=== PATIENT | female | born 1960 | race African-American/Black ===

== ENCOUNTER 2018-03-03 14:20 | Inpatient (IN) | payer MEDICARE, OTHER ==
[2018-03-03] MEDS ORDERED: Ondansetron ODT 4 MG TAB ONE (15:50)
[2018-03-03] MEDS ORDERED: HYDROcodone/Acetaminophen 10/325 mg Tablet ONE (15:50)
[2018-03-03] MEDS ORDERED: Rocuronium Bromide 10 MG/ML (10ML VIAL) ONE (16:11)
[2018-03-03] MEDS ORDERED: Lidocaine 1% PF 5 ML VIAL ONE (16:11)
[2018-03-03] MEDS ORDERED: PHENYLEPHRINE-NS 100 MCG/ML 10 ML SYRINGE ONE (16:11)
[2018-03-03] MEDS ORDERED: Succinylcholine Chloride 20 MG/ML 10 ml SYRINGE FS ONE (16:11)
[2018-03-03] MEDS ORDERED: Glycopyrrolate 0.2 MG/ML 5 ML SYRINGE ONE (16:11)
[2018-03-03] MEDS ORDERED: Ondansetron PF 4 MG/2 ML Vial ONE ×2 (16:11→18:02)
[2018-03-03] MEDS ORDERED: PROPOFOL 200 MG/20 ML VIAL ONE (16:11)
[2018-03-03 16:18] LABS: #Lymphocytes 0.6 thou/uL (1.20-3.40); #Monocytes 0.4 thou/uL (0.11-0.59); #Neutrophils 9.6 thou/uL (1.40-6.50); %Basophils 0.1 % (0.0-1.0); %Eosinophils 0.3 % (0.0-10.0); %Lymphocytes 5.6 % (21.0-51.0); %Monocytes 3.3 % (0.0-10.0); %Neutrophils 90.7 % (42.0-75.0); Mean Corpuscular Hemoglobin 31.6 pg (27.0-31.0); Mean Corpuscular Volume 98.8 fL (78.0-98.0); Mean Platelet Volume 7.9 fL (7.4-10.4); Platelet Count 198 thou/uL (130-400); RBC Distribution Width 11.9 % (11.5-14.5); Red Blood Cell (RBC) Count 4.74 mill/uL (4.20-5.40); White Blood Cell (WBC) Count 10.6 thou/uL (4.8-10.8)
[2018-03-03 16:41] LABS: ALT (SGPT) 17 U/L (8-55); AST (SGOT) 13 U/L (5-34); Albumin 3.7 g/dL (3.5-5.0); Alkaline Phosphatase 152 U/L (40-150); Anion Gap 11 mmol/L (10-20); BUN (Urea Nitrogen) 12 mg/dL (9.8-20.1); Bilirubin, Total 0.8 mg/dL (0.2-1.2); CK (CPK) 87 U/L (29-168); Calc. Creatinine Clearance 0 mL/min (70-130); Calcium 11.1 mg/dL (7.8-10.44); Carbon Dioxide 25 mmol/L (22-29); Chloride 101 mmol/L (98-107); Estimated GFR-MDRD 67; Globulin 4.7 g/dL (2.4-3.5); Glucose 208 mg/dL (70-105); Lipase 20 U/L (8-78); Potassium 4.2 mmol/L (3.5-5.1); Protein, Total 8.4 g/dL (6.0-8.3); Sodium 133 mmol/L (136-145)
--- NOTE | 2018-03-03 17:06 | RAD ---
PORTABLE CHEST: 03/03/18 HISTORY: Shortness of breath. Abdominal pain. COMPARISON: 06/06/15 exam. Heart size is enlarged. There are atherosclerotic changes of the aorta. The lungs are clear of infilt rates. No signs of failure. IMPRESSION: Marked cardiomegaly. Stable exam. POS: [facility]
[2018-03-03] MEDS ORDERED: Acetaminophen 500 MG TAB ONE (17:17)
[2018-03-03 18:00] LABS: Bilirubin Negative (Negative); Blood, Urine Large (Negative); Clarity CLOUDY (Clear); Glucose, Urine (Dipstick) 100 mg/dL (Negative); Leukocyte Moderate (Negative); Nitrite Negative (Negative); Protein, Urine (Dipstick) 100 mg/dL (Neg-Trace); Specific Gravity, Urine 1.016 (1.002-1.036)
[2018-03-03 18:02] LABS: Bacteria/HPF None Seen HPF (None Seen); Hyaline Casts/LPF 4-6 HYALINE CAST LPF (0-3 Hyaline); Pathc Cast-AUWi Flag 0.87 (0-2.49); RBC/HPF GREATER THAN 50-TNTC HPF (0-3); Squamous Epithelial 0-3 HPF (0-3)
[2018-03-03] MEDS ORDERED: Morphine 4 MG/ML VIAL ONE (18:02)
[2018-03-03] MEDS ORDERED: cefTRIAXone\\ROCEPHIN 2 GM VIAL ONE (18:17)
[2018-03-03 18:48] LABS: PTT 33.8 SEC (22.9-36.1); Prothrombin Time 13.7 SEC (12.0-14.7)
[2018-03-03] MEDS ORDERED: Iopamidol 15 ML ONE (19:25)
--- NOTE | 2018-03-03 19:58 | CT ---
NONCONTRAST ENHANCED CT IMAGES OF THE ABDOMEN AND PELVIS: 03/03/18 HISTORY: Abdominal pain. Noncontrast enhanced CT images of the abdomen and pelvis demonstrates the lung bases to demonstrate n o definite evidence of effusions or pneumonia. Images of the liver and spleen, gallbladder and pancre as are grossly unremarkable. There is some fullness seen to the left adrenal gland. This does not ap pear to be significantly different than on the previous comparison exam from 03/27/15. The patient previously had a left ureteral stent which is no longer present. Multiple nonobstructing small lower pole calculi seen. There is interval development of a large right ureteropelvic junction calculus, diameter measuring ap proximately 10 mm resulting in right sided hydronephrosis. There is some gas within the right collect ing system. This may represent possible gas forming organism in an obstructed right system. No dilate d loops of small bowel seen. There is a moderate sized anterior abdominal wall infraumbilical hernia in the midline. IMPRESSION: Obstructing proximal right ureteral calculus with developed right sided hydronephrosis and gas within the right collecting system. Urologic intervention is recommended. POS: [facility]
[2018-03-03] MEDS ORDERED: Fentanyl 100 MCG/2 ML VIAL ONE (20:41)
[2018-03-03] MEDS ORDERED: diphenhydrAMINE 50 MG in Sodium Chloride 0.9% 50 ML IVPB PRN (21:53)
[2018-03-03] MEDS ORDERED: Metoclopramide HCl 10 MG/2 ML VIAL IVP PRN (21:53)
[2018-03-03] MEDS ORDERED: Morphine 4 MG/ML VIAL SLOW IVP PRN ×2 (21:53)
[2018-03-03] MEDS ORDERED: Lactated Ringer's 1,000 ML IV SCH (22:00)
[2018-03-03 22:06] LABS: Bilirubin Negative (Negative); Clarity TURBID (Clear); Glucose, Urine (Dipstick) Negative (Negative); Leukocyte Large (Negative); Nitrite Negative (Negative); Protein, Urine (Dipstick) 30 mg/dL (Neg-Trace); Specific Gravity, Urine 1.007 (1.002-1.036); pH, Urine 5.5 (5.0-9.0)
[2018-03-03 22:22] LABS: Pathc Cast-AUWi Flag 11.45 (0-2.49); Yeast-AUWi Flag 224.1 (0-25.0)
[2018-03-03 22:30] LABS: Bacteria/HPF 2+ HPF (None Seen); Blood, Urine Small (Negative); Hyaline Casts/LPF 0-3 HYALINE CAST LPF (0-3 Hyaline); RBC/HPF 0-3 HPF (0-3); Yeast-All Forms None Seen HPF (None Seen)
[2018-03-03 23:30] VITALS: BMI 58.1
[2018-03-04] MEDS ORDERED: Ondansetron PF 4 MG/2 ML Vial IVP PRN (02:39)
[2018-03-04] MEDS ORDERED: Dextrose 5% in Water 1,000 ML IV PRN ×2 (02:55→07:06)
[2018-03-04] MEDS ORDERED: Dextrose 50% Abboject 50 ML SYRINGE SLOW IVP PRN ×2 (02:55→07:06)
[2018-03-04] MEDS ORDERED: hydrALAZINE 20 MG/ML VIAL SLOW IVP PRN (02:57)
--- NOTE | 2018-03-04 03:05 | OP ---
DATE OF PROCEDURE: 03/03/2018 PREOPERATIVE DIAGNOSIS: Right UPJ stone with obstruction and presumed urinary tract infection. POSTOPERATIVE DIAGNOSIS: Right UPJ stone with obstruction and presumed urinary tract infection. PROCEDURE PERFORMED: Cystoscopy, retrograde pyelogram, insertion of right ureteral stent 6 x 26. ANESTHESIA: General with endotracheal tube. FINDINGS: Cloudy urine but only approximately 78 mL extracted from the renal pelvis and 6 x 26 double-J stent placed without difficulty in adequate position with good return. DRAINS REMAINING: Internal double-J 6 x 26 and regular Condon 18-Zambian. SPECIMEN: Urine from the right renal pelvis for micro and culture. ESTIMATED BLOOD LOSS: None. INDICATIONS FOR PROCEDURE: The patient is a 58-year-old female, who was admitted acutely with presumed UTI and obstructing right UPJ stone for urgent stent. At that time, she was having significant tachycardia, hypertension, and no concerns for hypotension with a relatively normal white count and no obvious bacteria despite significant inflammation in blood on urinalysis. [place] that she could likely get to the operating room for a stent, more safely in a timely fashion since she was hemodynamically stable rather than opt for percutaneous nephrostomy tube. DESCRIPTION OF PROCEDURE: The patient was brought into the room by Anesthesia, laid on the table in supine position. After receiving general anesthetic, the legs were placed in lithotomy position with the perineum prepped and draped in a sterile fashion. Using a 21-Zambian cystoscope, the urethra was traversed and the bladder was inspected. No lesions were noted. There was cloudy urine extracted and then the bladder was refilled. The right orifice was identified and intubated with a wire and then the Lancaster catheter. The wire was advanced beyond the stone and this was noted by pressure. It was difficult to see by fluoroscopy given the patient 's body habitus. The Lancaster catheter was advanced over the wire and then the wire was removed, and hydronephrotic drip was noted with approximately 7-8 mL of cloudy urine extracted and sent for specimen. At this time, releiving some of the pressure on the sysetm, I did a retrograde pyelogram which showed some hydro. Then, a 6 x 26 double-J was chosen. I attempted to find a 7 x 26, but they did not have this accessible. A good coil was visualized in the renal pelvis via fluoroscopy and a good coil visualized in the bladder via cystoscopy. The scope was removed. Given the cloudy debris and concern for infection with obstruction, I placed an 18-Zambian catheter in the Condon for maximum drainage. She was then awakened and transferred to PACU in stable condition. Job ID: [id number] MTDD
[2018-03-04] MEDS ORDERED: traMADol HCl 50 MG TAB PO PRN ×2 (07:04)
[2018-03-04] MEDS ORDERED: Metoclopramide HCl 10 MG/2 ML VIAL IVP PRN (07:04)
[2018-03-04] MEDS ORDERED: HumaLOG 300 UNITS/3 ML VIAL SC PRN (07:06)
[2018-03-04] MEDS: HumaLOG 300 UNITS/3 ML VIAL SC PRN ×3 (07:28→21:09)
[2018-03-04] MEDS: Acetaminophen 500 MG TAB PO PRN (07:31)
[2018-03-04] MEDS: Heparin 5,000 UNITS/ML VIAL SC SCH ×3 (07:48→21:09)
[2018-03-04] MEDS: Tamsulosin HCl 0.4 MG CAP PO SCH (07:49)
[2018-03-04] MEDS: Famotidine/PF 20 mg/2ml Vial SLOW IVP SCH ×2 (07:49→21:09)
[2018-03-04] MEDS: Docusate 100 MG CAP PO SCH ×2 (07:49→21:09)
[2018-03-04 08:19] LABS: Hemoglobin 14.2 g/dL (12.0-16.0); Mean Corpuscular HGB CONC 31.6 g/dL (32.0-36.0); Platelet Count 184 thou/uL (130-400); Red Blood Cell (RBC) Count 4.42 mill/uL (4.20-5.40); White Blood Cell (WBC) Count 17.7 thou/uL (4.8-10.8)
[2018-03-04 08:21] LABS: Hemoglobin A1c 7.5 % (4.0-6.0)
--- NOTE | 2018-03-04 08:35 | CON ---
DATE OF CONSULTATION: REASON FOR CONSULTATION: Medical management. HISTORY OF PRESENT ILLNESS: Ms. Cleary is a 58-year-old female who was evaluated in the emergency room on 03/03/2018 for evaluation of abdominal pain. Reports some mild shortness of breath, dark urine with an odor. The patient has had a kidney stone in the past, which required stenting on the left side with pyelonephritis in 2014. The patient was tachycardic and hypertensive on arrival, reported some mild right-sided back pain with some nausea. PAST MEDICAL HISTORY: Pertinent for coronary artery disease, congestive heart failure. Last EF can be found in the records from May 2013 with an EF of 48% on a stress test, November of 2013. She had 1/3 diastolic dysfunction. Also has a history of type 2 diabetes, GERD, hypertension, hyperlipidemia. The patient was found to have an obstructing proximal right renal calculus with developed right-sided hydronephrosis and gas within the right collecting system. Urologic intervention was recommended. Dr. Grey was consulted and Dr. Acosta took the patient to the OR for a stent placement and cystoscopy. The patient was then admitted to the surgical floor with fluids and IV antibiotics. Sound was consulted for medical management. PCP is Shanti Brasher. ALLERGIES: NO KNOWN DRUG ALLERGIES. HOME MEDICATIONS: Include: 1. Aspirin 81 mg p.o. daily. 2. Carvedilol 12.5 mg p.o. b.i.d. 3. Lisinopril 10 mg p.o. b.i.d. 4. Metformin 500 mg p.o. q.a.m. 5. Furosemide 40 mg p.o. daily. 6. Prilosec 20 mg p.o. daily. 7. Pravachol 40 mg p.o. q.p.m. PAST MEDICAL HISTORY: As above: 1. Obesity. 2. Coronary artery disease. 3. Congestive heart failure. 4. Type 2 diabetes. 5. GERD. 6. Hypertension. 7. Hyperlipidemia. PAST SURGICAL HISTORY: 1. Hernia repair. 2. Cardiac cath in 2009. 3. Stress test in 2013, which showed an EF of 48% and mild diastolic dysfunction. 4. Repair of fractured pelvic bone 20 years ago. PSYCHIATRIC HISTORY: None. SOCIAL HISTORY: The patient drinks socially. Denies drug use. Denies any smoking history. Lives at home with her family. FAMILY HISTORY: Includes coronary artery disease. ADDITIONAL SURGICAL HISTORY: Includes stent placement to the left ureter for 2 calculi in 2015. REVIEW OF SYSTEMS: CONSTITUTIONAL: The patient denies fever, chills. EYES: Denies any eye pain, discharge or vision changes. ENT: Denies sore throat. Denies rhinorrhea. CARDIOVASCULAR: Denies any chest pain, palpitations, syncope. RESPIRATORY: Reports some shortness of breath with pain. Reports it is better. EXTREMITIES: No cyanosis. GI: Right-sided abdominal pain, nausea. Denies diarrhea, constipation, vomiting. : Reports dark odorous urine. Denies dysuria. MUSCULOSKELETAL: Denies any falls, trauma. No myalgias. SKIN: No changes. No rash. NEUROLOGIC: No focal weakness. No headache. PHYSICAL EXAMINATION: VITAL SIGNS: Temperature is 97.8, pulse is 101, respiratory rate is 18 p.o. sat is 94% on room air. Blood pressure is 154/74. GENERAL: The patient is in no distress, is alert and oriented to person, place, and time. HEENT: Head is atraumatic and normocephalic. Eyes are equally round and reactive to light. External ocular muscles are intact. Sclera is normal. ENT: Nose exam is normal. Mouth exam is normal. Mucous membranes are moist. NECK: Trachea is midline. No tenderness. RESPIRATORY: Chest breath sounds are clear. Chest movement is symmetrical. No respiratory distress. CARDIOVASCULAR: Regular rate and rhythm. Heart sounds are normal. ABDOMEN: Diffuse mild abdominal pain. Nonspecific bowel sounds are heard. BACK: Normal inspection. No CVA tenderness. EXTREMITIES: Upper extremity motor strength is normal. Motor strength is equal bilaterally. Pulses equal bilaterally in lower extremities. Motor strength is normal. No calf tenderness. Pedal pulses are equal bilaterally. No edema is noted. NEUROLOGIC: The patient is oriented to person, place, and time. Speech is normal. SKIN: Warm, dry, normal in color. IMAGIN. EKG in the ER shows sinus tach, beats per minute 127, possible left atrial enlargement. 2. Radiology interpretation, chest x-ray is cloudy. No obvious infiltrates. 3. Abdomen pelvis CT as above. Right UPJ obstruction with gas-forming organism. PERTINENT LABORATORY DATA: White blood cell count is 10.6, hemoglobin is 15, hematocrit is 46.9, and platelet count is 198. INR is 1. APTT is 33.8, PT is 13.7. Sodium was 133, potassium 4.2, chloride 101, gap is 11, BUN is 12, creatinine is 1.02. GFR is 67, glucose 208. Initial lactic acid 1.5, calcium 11.1, bilirubin 0.8, AST 13, ALT is 17, alkaline phosphatase 152. CK is 87, first troponin undetectable. Albumin 3.7, globulin 4.7, lipase is 20. Initial urine at 1725 hours showed cloudy protein, glucose, blood positive, moderate leukocyte esterase, greater than 50 white blood cell count, bacteria none, casts 4-6. Repeat urine at 2127 hours, turbid, positive for protein, blood, large leukocyte esterase, greater than 50 white blood cell count, 7 to 10 squamous cells, 2+ bacteria. ASSESSMENT: 1. Sepsis related to a complicated urinary tract infection. 2. Nephrolithiasis. 3. Coronary artery disease. 4. Congestive heart failure with last ejection fraction of 48% in 2013. 5. Hyperlipidemia. 6. Gastroesophageal reflux disease. 7. Diabetes type 2. PLAN: 1. The patient was given Levaquin and Rocephin in the emergency room. 2. Postoperative, we will continue the Rocephin, fluids. 3. We will trend vital signs. 4. We will be mindful of fluid overload. 5. We will hold home medications for now. Hope to restart in the morning. 6. We will add sliding scale insulin and Accu-Cheks for glucose monitoring and control. 7. Cultures were obtained and we will monitor results. Repeat labs in a.m. Check an A1c, lipids with morning labs. Case discussed with Dr. Munoz, who agrees to plan. Job ID: [id number]
[2018-03-04 08:38] LABS: Anion Gap 14 mmol/L (10-20); BUN (Urea Nitrogen) 12 mg/dL (9.8-20.1); Calc. Creatinine Clearance 122 mL/min (70-130); Calcium 10.2 mg/dL (7.8-10.44); Carbon Dioxide 25 mmol/L (22-29); Chloride 102 mmol/L (98-107); Cholesterol 151 mg/dl (< 200 Desired); Estimated GFR-MDRD 64; Glucose 220 mg/dL (70-105); HDL Cholesterol 50 mg/dL (>60 Neg Risk); LDL Cholesterol, Calculated 86 mg/dL; Potassium 4.3 mmol/L (3.5-5.1); Sodium 137 mmol/L (136-145); Triglycerides 76 mg/dL (Less than 150)
[2018-03-04] MEDS ORDERED: Non-Formulary Item 1 EACH (Omeprazole [Prilosec] 20 MG) PO SCH (09:00)
[2018-03-04] MEDS ORDERED: Non-Formulary Item 1 EACH (Carvedilol [Carvedilol] 12.5 MG) PO SCH (09:00)
[2018-03-04 09:30] LABS: Band 6 % (5-11); Lymphocytes 10 % (21-51); MDiff Complete? YES; Monocytes 12 % (0-10); Neutrophil 71 % (42-75); RBC Morphology Normal; Reactive Lymphocytes 1 % (0-10)
--- NOTE | 2018-03-04 11:20 | PRG ---
DATE OF SERVICE: 03/04/2018 SUBJECTIVE: The patient did well overnight. Her pain is much improved and she overall feels better. She does report some abdominal cramping, possibly as if she has to have a bowel movement. It is difficult for to tell it does not seem to be associated with urination. No nausea or vomiting. She has not been constipated, had a bowel movement yesterday. OBJECTIVE: VITAL SIGNS: T-max 97.8, heart rate down to the 90s, saturating 98% on 1 L nasal cannula and 92% on room air, and blood pressure elevated 150s/70. GENERAL: She is lying comfortably in the bed. HEART: Regular rhythm. Borderline tachycardia. : Urine is much more clear and yellow, draining from the Condon. LABORATORY DATA: Labs drawn back when actually saw her, but are back since this dictation and shows CBC with an elevated white count, which I think is delayed in reaction from her significant infection last night as the bands are actually down. Chemistry has normalized from a sodium standpoint, but her sugars are still elevated in the 220 range and her hemoglobin A1c is 7.5. Her urine from the OR last night did show 2+ bacteria. There are no cultures back at this time. Reviewed stone prevention and overall health in great detail. She ultimately is harming herself greatly from her morbid obesity, and now likely has diabetes as well. I have asked the hospitalist to see her to help manage some of these medical issues including given her further education on diabetes and determine whether it is appropriate to send her out on medicine for this. We discussed dietary issues with respect to prevention of stones as well. ASSESSMENT AND PLAN: We have a 58-year-old female, admitted with obstructing right ureteral stone and a urinary tract infection, status post urgent stent on 03/03/2018 with culture still pending and most likely new onset diabetes in morbidly obese patient with noncompliant on medications for hypertension and cholesterol. Continue IV Rocephin for now. Discontinue Condon and if she is appropriate for discharge later today from a vital standpoint and medical standpoint, then I would send her out on 4 weeks of antibiotics and ensure that the cultures are appropriate for this, but I am not sure she needs to stay in the hospital until these are back since she has remained afebrile at this time. Job ID: [id number]
--- NOTE | 2018-03-04 13:22 | PDOC.PN ---
- Subjective Encounter Start Date: 03/04/18 Encounter Start Time: 10:30 Subjective: pt up in bed no complains - Objective Resuscitation Status - Order Detail: 03/04/18 02:39 Resuscitation Status Routine Co-Sign Provider: Resuscitation Status: FULL: Full Resuscitation Discussed with: patient Vital Signs & Weight: Vital Signs (12 hours) Temp Pulse Resp BP BP Pulse Ox 03/04/18 11:49 98.1 F 84 18 129/79 91 L 03/04/18 08:00 92 L 03/04/18 07:51 97.9 F 93 18 110/67 92 L 03/04/18 04:15 98.1 F 99 18 150/77 H 98 Weight Weight 297 lb 9.6 oz I&O: 03/03/18 03/04/18 03/05/18 06:59 06:59 06:59 Intake Total 1560 Output Total 1450 600 Balance 110 -600 Result Diagrams: 03/04/18 07:28 03/04/18 07:28 Additional Labs: Accuchecks 03/04/18 03/04/18 12:12 06:53 POC Glucose 203 H 229 H Phys Exam - Physical Examination Neck: no nodes, no JVD, supple, full ROM Respiratory: no wheezing, no rales, no rhonchi, wheezing present, clear to auscultation bilateral Cardiovascular: RRR, no significant murmur, no rub, gallop, irregular Gastrointestinal: soft, non-tender, no distention, positive bowel sounds Dx/Plan (1) Abdominal pain Code(s): R10.9 - UNSPECIFIED ABDOMINAL PAIN Status: Acute (2) UTI (urinary tract infection) Status: Acute (3) Obesities, morbid Code(s): E66.01 - MORBID (SEVERE) OBESITY DUE TO EXCESS CALORIES Status: Acute - Plan will continue abx for now -: pt uses cpap at night will order -: will add metformin ezequiel for elevated alc * . Review of Systems - Review of Systems Respiratory: negative: Cough, Dry, Shortness of Breath, Hemoptysis, SOB with Excertion, Pleuritic Pain, Sputum, Wheezing Cardiovascular: negative: chest pain, palpitations, orthopnea, paroxysmal nocturnal dyspnea, edema, light headedness, other Gastrointestinal: negative: Nausea, Vomiting, Abdominal Pain, Diarrhea, Constipation, Melena, Hematochezia, Other Genitourinary: negative: Dysuria, Frequency, Incontinence, Hematuria, Retention , Other - Medications/Allergies Allergies/Adverse Reactions: Allergies Allergy/AdvReac Type Severity Reaction Status Date / Time No Known Drug Allergies Allergy Verified 07/22/16 16:41 Medications: Current Medications Acetaminophen (Tylenol) 1,000 mg PO Q6H PRN PRN Reason: Fever/Mild Pain Last Admin: 03/04/18 07:31 Dose: 1,000 mg Carvedilol (Coreg) 12.5 mg PO BID [facility] Dextrose/Water (Dextrose 50%) 25 gm SLOW IVP PRN PRN PRN Reason: Hypoglycemia Docusate Sodium (Colace) 100 mg PO BID [facility] Last Admin: 03/04/18 07:49 Dose: 100 mg Famotidine (Pepcid) 20 mg SLOW IVP BID [facility] Last Admin: 03/04/18 07:49 Dose: 20 mg Glucagon (Glucagon) 1 mg IM PRN PRN PRN Reason: Hypoglycemia Heparin Sodium (Porcine) (Heparin) 5,000 units SC TID [facility] Last Admin: 03/04/18 07:48 Dose: 5,000 units Hydralazine HCl (Apresoline) 10 mg SLOW IVP Q4H PRN PRN Reason: SBP > 180 and HR < 70 Ceftriaxone Sodium 2 gm/ (Sodium Chloride) 100 mls @ 200 mls/hr IVPB Q24HR [facility] Diphenhydramine HCl 50 mg/ (Sodium Chloride) 51 mls @ 150 mls/hr IVPB Q6H PRN PRN Reason: Itching & Insomnia Dextrose/Water (D5w) 1,000 mls @ 0 mls/hr IV .Q0M PRN PRN Reason: Hypoglycemia Insulin Human Lispro (Humalog) 0 units SC .MILD SLIDING SCALE PRN PRN Reason: Mild Correctional Scale Last Admin: 03/04/18 07:28 Dose: 3 unit Insulin Human Lispro (Humalog) 0 units SC .MILD SLIDING SCALE PRN PRN Reason: Mild Correctional Scale Metoclopramide HCl (Reglan) 10 mg IVP Q6H PRN PRN Reason: Nausea/Vomiting Ondansetron HCl (Zofran) 4 mg IVP Q6H PRN PRN Reason: Nausea/Vomiting Pantoprazole Sodium (Protonix) 40 mg PO DAILY [facility] Sodium Chloride (Flush - Normal Saline) 10 ml IVF Q12HR PRN PRN Reason: Saline Flush Tamsulosin HCl (Flomax) 0.4 mg PO DAILY [facility] Last Admin: 03/04/18 07:49 Dose: 0.4 mg Throat Lozenges (Cepastat Lozenges) 1 shai PO Q2H PRN PRN Reason: Sore Throat Tramadol HCl (Ultram) 50 mg PO Q4H PRN PRN Reason: Moderate Pain (4-6) Tramadol HCl (Ultram) 100 mg PO Q4H PRN PRN Reason: Severe Pain (7-10)
[2018-03-04] MEDS: Carvedilol 6.25 MG TAB PO SCH ×2 (15:15→21:09)
[2018-03-04] MEDS ORDERED: cefTRIAXone\\ROCEPHIN 2 GM in Sodium Chloride 0.9% 100 ML IVPB SCH (17:00)
[2018-03-04] MEDS: Cepastat Lozenges 1 LOZ PO PRN (21:23)
[2018-03-05 06:21] LABS: #Eosinphils 0.1 thou/uL (0.0-0.7); #Lymphocytes 0.9 thou/uL (1.20-3.40); #Monocytes 1.2 thou/uL (0.11-0.59); #Neutrophils 8.1 thou/uL (1.40-6.50); %Basophils 0.2 % (0.0-1.0); %Eosinophils 0.7 % (0.0-10.0); %Lymphocytes 8.5 % (21.0-51.0); %Monocytes 11.4 % (0.0-10.0); %Neutrophils 79.2 % (42.0-75.0); Hemoglobin 12.6 g/dL (12.0-16.0); Mean Corpuscular HGB CONC 31.9 g/dL (32.0-36.0); Mean Corpuscular Hemoglobin 32.3 pg (27.0-31.0); Mean Platelet Volume 7.8 fL (7.4-10.4); Platelet Count 182 thou/uL (130-400); RBC Distribution Width 11.7 % (11.5-14.5); White Blood Cell (WBC) Count 10.2 thou/uL (4.8-10.8)
[2018-03-05] MEDS: HumaLOG 300 UNITS/3 ML VIAL SC PRN ×2 (06:36→12:35)
[2018-03-05 06:46] LABS: Anion Gap 11 mmol/L (10-20); BUN (Urea Nitrogen) 11 mg/dL (9.8-20.1); Calc. Creatinine Clearance 124 mL/min (70-130); Calcium 10.2 mg/dL (7.8-10.44); Carbon Dioxide 26 mmol/L (22-29); Chloride 99 mmol/L (98-107); Estimated GFR-MDRD 66; Glucose 244 mg/dL (70-105); Potassium 4.2 mmol/L (3.5-5.1); Sodium 132 mmol/L (136-145)
[2018-03-05] MEDS ORDERED: metFORMIN 500 MG TAB PO SCH (08:00)
[2018-03-05 08:33] VITALS: TEMP 97.8
[2018-03-05] MEDS: Famotidine/PF 20 mg/2ml Vial SLOW IVP SCH (09:22)
[2018-03-05] MEDS: Carvedilol 6.25 MG TAB PO SCH (09:22)
[2018-03-05] MEDS: Docusate 100 MG CAP PO SCH (09:22)
[2018-03-05] MEDS: Cepastat Lozenges 1 LOZ PO PRN (09:22)
[2018-03-05] MEDS: Heparin 5,000 UNITS/ML VIAL SC SCH ×2 (09:23→15:59)
[2018-03-05] MEDS: Tamsulosin HCl 0.4 MG CAP PO SCH (09:23)
[2018-03-05 12:39] VITALS: BP 113/64
[2018-03-05] MEDS: Acetaminophen 500 MG TAB PO PRN (12:43)
--- NOTE | 2018-03-05 14:33 | PDOC.PN ---
- Subjective Encounter Start Date: 03/05/18 Encounter Start Time: 10:00 Subjective: pt up in chair no complains - Objective Resuscitation Status - Order Detail: 03/04/18 02:39 Resuscitation Status Routine Co-Sign Provider: Resuscitation Status: FULL: Full Resuscitation Discussed with: patient Vital Signs & Weight: Vital Signs (12 hours) Temp Pulse Resp BP BP BP Pulse Ox 03/05/18 12:38 97.8 F 85 18 113/64 91 L 03/05/18 09:22 128/65 03/05/18 08:00 94 L 03/05/18 07:53 97.8 F 82 22 H 124/70 94 L 03/05/18 04:51 98.7 F 94 19 131/62 93 L 03/05/18 04:37 99.5 F 106 H 19 120/71 93 L Weight Weight 297 lb 9.6 oz I&O: 03/04/18 03/05/18 03/06/18 06:59 06:59 06:59 Intake Total 1560 480 Output Total 1450 1400 Balance 110 -920 Result Diagrams: 03/05/18 05:56 03/05/18 05:56 Additional Labs: Accuchecks 03/05/18 03/05/18 03/04/18 12:15 06:02 20:22 POC Glucose 316 H 204 H 242 H 03/04/18 15:24 POC Glucose 252 H Phys Exam - Physical Examination Neck: no nodes, no JVD, supple, full ROM Respiratory: no wheezing, no rales, no rhonchi, wheezing present, clear to auscultation bilateral Cardiovascular: RRR, no significant murmur, no rub, gallop, irregular Gastrointestinal: soft, non-tender, no distention, positive bowel sounds Dx/Plan (1) Abdominal pain Code(s): R10.9 - UNSPECIFIED ABDOMINAL PAIN Status: Acute (2) UTI (urinary tract infection) Status: Acute (3) Obesities, morbid Code(s): E66.01 - MORBID (SEVERE) OBESITY DUE TO EXCESS CALORIES Status: Acute - Plan will add metformin on this pt, she has not been taking her meds -: educated her on the importance of taking her medication -: abx per urology. pt is on chronic oxygen * . Review of Systems - Review of Systems Respiratory: negative: Cough, Dry, Shortness of Breath, Hemoptysis, SOB with Excertion, Pleuritic Pain, Sputum, Wheezing Cardiovascular: negative: chest pain, palpitations, orthopnea, paroxysmal nocturnal dyspnea, edema, light headedness, other Gastrointestinal: negative: Nausea, Vomiting, Abdominal Pain, Diarrhea, Constipation, Melena, Hematochezia, Other Genitourinary: negative: Dysuria, Frequency, Incontinence, Hematuria, Retention , Other - Medications/Allergies Allergies/Adverse Reactions: Allergies Allergy/AdvReac Type Severity Reaction Status Date / Time No Known Drug Allergies Allergy Verified 07/22/16 16:41 Medications: Current Medications Acetaminophen (Tylenol) 1,000 mg PO Q6H PRN PRN Reason: Fever/Mild Pain Last Admin: 03/05/18 12:43 Dose: 1,000 mg Carvedilol (Coreg) 12.5 mg PO BID [facility] Last Admin: 03/05/18 09:22 Dose: 12.5 mg Dextrose/Water (Dextrose 50%) 25 gm SLOW IVP PRN PRN PRN Reason: Hypoglycemia Docusate Sodium (Colace) 100 mg PO BID [facility] Last Admin: 03/05/18 09:22 Dose: 100 mg Famotidine (Pepcid) 20 mg SLOW IVP BID [facility] Last Admin: 03/05/18 09:22 Dose: 20 mg Glucagon (Glucagon) 1 mg IM PRN PRN PRN Reason: Hypoglycemia Heparin Sodium (Porcine) (Heparin) 5,000 units SC TID [facility] Last Admin: 03/05/18 09:23 Dose: 5,000 units Hydralazine HCl (Apresoline) 10 mg SLOW IVP Q4H PRN PRN Reason: SBP > 180 and HR < 70 Ceftriaxone Sodium 2 gm/ (Sodium Chloride) 100 mls @ 200 mls/hr IVPB Q24HR [facility] Last Admin: 03/04/18 17:19 Dose: 100 mls Diphenhydramine HCl 50 mg/ (Sodium Chloride) 51 mls @ 150 mls/hr IVPB Q6H PRN PRN Reason: Itching & Insomnia Dextrose/Water (D5w) 1,000 mls @ 0 mls/hr IV .Q0M PRN PRN Reason: Hypoglycemia Insulin Human Lispro (Humalog) 0 units SC .MILD SLIDING SCALE PRN PRN Reason: Mild Correctional Scale Last Admin: 03/05/18 12:35 Dose: 5 unit Insulin Human Lispro (Humalog) 0 units SC .MILD SLIDING SCALE PRN PRN Reason: Mild Correctional Scale Metformin HCl (Glucophage) 500 mg PO BID[facility] Last Admin: 03/05/18 09:22 Dose: 500 mg Metoclopramide HCl (Reglan) 10 mg IVP Q6H PRN PRN Reason: Nausea/Vomiting Ondansetron HCl (Zofran) 4 mg IVP Q6H PRN PRN Reason: Nausea/Vomiting Pantoprazole Sodium (Protonix) 40 mg PO DAILY [facility] Last Admin: 03/05/18 09:22 Dose: 40 mg Sodium Chloride (Flush - Normal Saline) 10 ml IVF Q12HR PRN PRN Reason: Saline Flush Last Admin: 03/05/18 09:31 Dose: 10 ml Tamsulosin HCl (Flomax) 0.4 mg PO DAILY [facility] Last Admin: 03/05/18 09:23 Dose: 0.4 mg Throat Lozenges (Cepastat Lozenges) 1 shai PO Q2H PRN PRN Reason: Sore Throat Last Admin: 03/05/18 09:22 Dose: 1 shai Tramadol HCl (Ultram) 50 mg PO Q4H PRN PRN Reason: Moderate Pain (4-6) Last Admin: 03/04/18 15:14 Dose: 50 mg Tramadol HCl (Ultram) 100 mg PO Q4H PRN PRN Reason: Severe Pain (7-10) Last Admin: 03/05/18 09:11 Dose: 100 mg
--- NOTE | 2018-03-05 16:07 | DIS ---
DATE OF ADMISSION: 03/03/2018 DATE OF DISCHARGE: 03/05/2018 ADMISSION DIAGNOSES: Right ureteropelvic junction stone, emphysematous pyelonephritis, urinary tract infection. DISCHARGE DIAGNOSES: same. PROCEDURES: Cystoscopy, right double-J stent placement by Dr. Grey. HISTORY: Please see admission H and P. The patient has been cared for by me in the past and I was therefor listed as the attending physician. I did not provide any of her care during this admission.Information provided in this discharge summary is by review of the chart. She presented to the emergency room with complaints of pain and was noted to have a large right UPJ stone. The urine was worrisome for infection and air was seen in the renal collecting system proximal to the stone. She was taken to the operating room by Dr. Grey on 03/03/2018. Internal Medicine consultation was requested by Dr. Grey for medical management. Postoperatively, she was managed with IV antibiotics. She remained hemodynamically stable postoperatively. Her urine culture demonstrated E coli sensitive to Cipro. She was discharged home on on Cipro 500 mg p.o. b.i.d and she will follow up in our office.. Job ID: [id number] MTDD
--- NOTE | 2018-03-05 16:18 | PQF ---
CLINICAL DOCUMENTATION IMPROVEMENT CLARIFICATION FORM: ICD-10 Updated PLEASE DO AN ADDENDUM TO THE PROGRESS NOTE WITH ANY DOCUMENTATION UPDATES OR ADDITIONS AND CARRY THROUGH TO DC SUMMARY. THANK YOU. DATE: 03/05/2018 ATTN: Dr. Goodwin Please exercise your independent, professional judgment in responding to the clarification form. Clinical indicators are provided on the bottom of this form for your review Please check appropriate box(s) to clarify if the following diagnosis has been ruled in or ruled out: bacterial UTI, emphysematis pyeloneprosis [x ] Ruled in diagnosis [x ] Continue to treat [ ] Resolved [ ] Ruled out diagnosis [ ] Cannot rule out diagnosis [ ] Other diagnosis [ ] Unable to determine In addition, please specify: Present on Admission (POA): [x ] Yes [ ] No [ ] Unable to determine For continuity of documentation, please document condition throughout progress notes and discharge summary. Thank You. CLINICAL INDICATORS - SIGNS / SYMPTOMS / LABS ER Record: BP 177/79, Pulse 100-134, Resp 20, 24 Temp 99.6 up to 100.7 DX: Sepsis. Additional: obstructed R ureteral stone Consult 03/04: ( [employer]). BP 154/74, Pulse 101 Resp. 18, Temp 97.8 Sepsis related to a complicated urinary tract infection. Microbiology: Urine culture Final 03/05 @ 1409: Escherichia coli RISKS: PN 03/04 ([place]): 58 yr old, admitted with obstructing right ureteral stone and a UTI, s/p urgent stent on 03/03/2018 with culture still pending and most likely new onset diabetes in morbidly obese patient. TREATMENT: PN 03/04 (Que): Continue IV rocephin for now. Thank you, Rosa (This form is maintained as a part of the permanent medical record) 2014 [employer]. All Rights Reserved Rosa Keys RN, BSN [email or web address] Office: [phone] [facility]
--- NOTE | 2018-03-08 00:04 | EKG ---
Test Reason : ABDPAIN Blood Pressure : / mmHG Vent. Rate : 127 BPM Atrial Rate : 127 BPM P-R Int : 162 ms QRS Dur : 094 ms QT Int : 284 ms P-R-T Axes : 070 007 059 degrees QTc Int : 412 ms Sinus tachycardia Possible Left atrial enlargement Borderline ECG Confirmed by GARETH LANZA, TRAVIS ([id number]), digital editor MORAIMA TESFAYE ([id number]) on 03/08/2018 12:04:06 AM Referred By: GARETH Confirmed By:TRAVIS SERVIN MD
== END 2018-03-05 16:00 | disposition home or self-care (01) | DRG 660 ==
LOC: ERS 14:20 → SDC 18:33 → SURG B 18:34 → ERS 19:57
PROVIDERS: ADMIT Urology; ATTEND Urology
PROC: 0T768DZ Dilation of Right Ureter with Intraluminal Device, Via Natural or Artificial Opening Endoscopic (ICD-10-PCS; principal; 2018-03-03)
PROC: BT1DZZZ Fluoroscopy of Right Kidney, Ureter and Bladder (ICD-10-PCS; 2018-03-03)
DX: N20.1 Calculus of ureter (principal); N11.1 Chronic obstructive pyelonephritis; N39.0 Urinary tract infection, site not specified; Z68.43 Body mass index [BMI] 50.0-59.9, adult; I25.10 Atherosclerotic heart disease of native coronary artery without angina pectoris; E11.9 Type 2 diabetes mellitus without complications; K21.9 Gastro-esophageal reflux disease without esophagitis; I11.0 Hypertensive heart disease with heart failure; E78.5 Hyperlipidemia, unspecified; I50.9 Heart failure, unspecified; E66.01 Morbid (severe) obesity due to excess calories; B96.20 Unspecified Escherichia coli [E. coli] as the cause of diseases classified elsewhere; Z98.890 Other specified postprocedural states; Z79.82 Long term (current) use of aspirin; Z79.899 Other long term (current) drug therapy
CPT/HCPCS: 36415; 36416; 51701; 71045; 74176; 74420; 80048; 80053; 80061; 81003; 81015; 82550; 83036; 83605; 83690; 84484; 85025; 85610; 85730; 87040; 87077; 87086; 87186; 93005; 96365; 96367; 96375; A4353; C1758; J0696; J1644; J1956; J2001; J2270; J2405; J2704; J3010; J3490; J7050; Q0162; Q9967; S0028

== ENCOUNTER 2018-06-05 10:44 | Outpatient (CLI) | payer MEDICARE ==
--- NOTE | 2018-06-05 13:37 | MMO ---
Bilateral MAMMO Bilat Screen [facility]. CLINICAL HISTORY: Patient is 58 years old and is seen for screening. The patient has no family history of breast cancer. The patient has no personal history of cancer. VIEWS: The views performed were: bilateral craniocaudal; bilateral craniocaudal with tomosynthesis; bilateral mediolateral oblique; and bilateral mediolateral oblique with tomosynthesis. FILMS COMPARED: The present examination has been compared to prior imaging studies performed at [facility] on 01/23/2010 and 07/04/2016. MAMMOGRAM FINDINGS: There are scattered fibroglandular densities. Finding 1: There are stable benign appearing calcifications seen in both breasts. Finding 2: There is a stable intramammary lymph node seen in the right breast. There are no suspicious masses, suspicious calcifications, or new areas of architectural distortion. IMPRESSION: THERE IS NO MAMMOGRAPHIC EVIDENCE OF MALIGNANCY. A ROUTINE FOLLOW-UP MAMMOGRAM IN 1 YEAR IS RECOMMENDED. THE RESULTS OF THIS EXAM WERE SENT TO THE PATIENT. ACR BI-RADS Category 2 - Benign finding MAMMOGRAPHY NOTE: 1. A negative mammogram report should not delay a biopsy if a dominant of clinically suspicious mass is present. 2. Approximately 10% to 15% of breast cancers are not detected by mammography. 3. Adenosis and dense breasts may obscure an underlying neoplasm.
== END 2018-06-05 10:45 | disposition home or self-care (01) ==
LOC: BICMAMMO 10:44
PROVIDERS: ATTEND Nurse Practitioner
DX: Z12.31 Encounter for screening mammogram for malignant neoplasm of breast (principal)
CPT/HCPCS: 77063; 77067

== ENCOUNTER 2018-06-11 08:15 | Outpatient (CLI) | payer MEDICARE ==
--- NOTE | 2018-06-11 09:53 | ULT ---
PELVIC ULTRASOUND: HISTORY: Uterine hypertrophy. FINDINGS: Multiple longitudinal and transverse images of the pelvis are obtained using a multihertz curvilinear transabdominal as well as multihertz endovaginal transducers. Real-time, color flow, and spectral w aveform Doppler analysis demonstrates the uterus to be bulky measuring 11.6 x 5.8 x 7.0 cm. The endo metrium is markedly thickened measuring up to 4.1 cm. There is a uterine endometrial wall mass measuring 3.9 x 4.4 x 3.7 cm. Further gynecologic evaluatio n recommended. Both ovaries visualized with good blood flow. The right ovary measures 3.5 x 1.8 x 2.2 cm and the le ft ovary measures 2.4 x 1.3 x 1.6 cm. IMPRESSION: 1. Endometrial uterine mass. 2. No evidence of ovarian masses or lesions. POS: [facility]
== END 2018-06-11 08:16 | disposition home or self-care (01) ==
LOC: BICULT 08:15
PROVIDERS: ATTEND Nurse Practitioner
DX: N85.2 Hypertrophy of uterus (principal); N85.8 Other specified noninflammatory disorders of uterus
CPT/HCPCS: 76856

== ENCOUNTER 2019-04-12 08:12 | Emergency (ER) | payer MEDICARE, SELFPAY ==
--- NOTE | 2019-04-12 08:43 | RAD ---
EXAM: Chest one view: HISTORY: Chest pain COMPARISON: 03/03/2018 FINDINGS: Heart size: Stable but minimally enlarged. Lungs: Clear of acute process. No evidence for confluent pneumonia, pleural effusion, acute edema, or pneumothorax, or other signifi cant acute process. IMPRESSION: No significant acute intrathoracic disease. Stable exam.
[2019-04-12 08:51] LABS: #Eosinphils 0.1 thou/uL (0.0-0.7); #Lymphocytes 1.3 thou/uL (1.20-3.40); #Monocytes 0.5 thou/uL (0.11-0.59); #Neutrophils 4.8 thou/uL (1.40-6.50); %Basophils 0.2 % (0.0-1.0); %Eosinophils 1.5 % (0.0-10.0); %Lymphocytes 19.7 % (21.0-51.0); %Monocytes 7.7 % (0.0-10.0); %Neutrophils 70.8 % (42.0-75.0); Hemoglobin 15.5 g/dL (12.0-16.0); Mean Corpuscular HGB CONC 32.7 g/dL (32.0-36.0); Mean Corpuscular Hemoglobin 32.9 pg (27.0-31.0); Mean Platelet Volume 8.2 fL (7.4-10.4); Platelet Count 196 thou/uL (130-400); RBC Distribution Width 11.7 % (11.5-14.5); White Blood Cell (WBC) Count 6.7 thou/uL (4.8-10.8)
[2019-04-12 09:03] LABS: ALT (SGPT) 17 U/L (8-55); AST (SGOT) 14 U/L (5-34); Albumin 3.8 g/dL (3.5-5.0); Alkaline Phosphatase 150 U/L (40-110); Anion Gap 11 mmol/L (10-20); BUN (Urea Nitrogen) 12 mg/dL (9.8-20.1); Bilirubin, Total 0.3 mg/dL (0.2-1.2); Calc. Creatinine Clearance 0 mL/min (70-130); Calcium 10.7 mg/dL (7.8-10.44); Carbon Dioxide 27 mmol/L (22-29); Chloride 102 mmol/L (98-107); Estimated GFR-MDRD 79; Globulin 4.1 g/dL (2.4-3.5); Glucose 233 mg/dL (70-105); Lipase 37 U/L (8-78); Potassium 4.2 mmol/L (3.5-5.1); Protein, Total 7.9 g/dL (6.0-8.3); Sodium 136 mmol/L (136-145)
[2019-04-12] MEDS ORDERED: Aspirin Chewable 81 MG TAB ONE (09:25)
[2019-04-12] MEDS ORDERED: Nitroglycerin 2% Ointment 1 INCH/1 GM Packet ONE (09:26)
[2019-04-12] MEDS ORDERED: Losartan 25 MG TAB PO SCH (09:45)
== END 2019-04-12 10:50 | disposition home or self-care (01) ==
LOC: ERS 08:12
DX: I11.0 Hypertensive heart disease with heart failure (principal); I50.9 Heart failure, unspecified; R07.9 Chest pain, unspecified; E66.01 Morbid (severe) obesity due to excess calories; I25.10 Atherosclerotic heart disease of native coronary artery without angina pectoris; E11.9 Type 2 diabetes mellitus without complications; K21.9 Gastro-esophageal reflux disease without esophagitis; E78.5 Hyperlipidemia, unspecified
CPT/HCPCS: 71045; 80053; 83690; 83880; 84484; 85025; 93005; 94760

== ENCOUNTER 2020-05-07 19:00 | Outpatient (CLI) | payer MEDICARE | END 2020-05-07 19:01 | disposition home or self-care (01) | LOC: SLEEPLAB 19:00 | PROVIDERS: ATTEND Family Medicine | DX: G47.33 Obstructive sleep apnea (adult) (pediatric) (principal); I11.0 Hypertensive heart disease with heart failure; I50.9 Heart failure, unspecified; E11.9 Type 2 diabetes mellitus without complications; R51.9 Headache, unspecified; R06.83 Snoring; E66.9 Obesity, unspecified; R09.02 Hypoxemia; Z68.43 Body mass index [BMI] 50.0-59.9, adult | CPT/HCPCS: 95811 ==

== ENCOUNTER 2022-06-11 05:47 | Day surgery (SDC) | payer MEDICARE, OTHER ==
[2022-06-07 14:18] VITALS: BMI 58.3
[2022-06-11] MEDS ORDERED: Dexmedetomidine 200 MCG/2 ML VIAL ONE (07:30)
[2022-06-11] MEDS ORDERED: Lidocaine 1% PF 5 ML VIAL ONE (07:47)
[2022-06-11] MEDS ORDERED: PROPOFOL 200 MG/20 ML VIAL ONE (07:47)
== END 2022-06-11 09:06 | disposition home or self-care (01) ==
LOC: SDC 05:47 → EDSEX 05:47 → SDC 09:06
PROVIDERS: ATTEND Internal Medicine
PROC: 0DJ08ZZ Inspection of Upper Intestinal Tract, Via Natural or Artificial Opening Endoscopic (ICD-10-PCS; principal; 2022-06-11)
PROC: 0DJD8ZZ Inspection of Lower Intestinal Tract, Via Natural or Artificial Opening Endoscopic (ICD-10-PCS; 2022-06-11)
DX: D50.0 Iron deficiency anemia secondary to blood loss (chronic) (principal); K64.4 Residual hemorrhoidal skin tags; K64.8 Other hemorrhoids; K21.9 Gastro-esophageal reflux disease without esophagitis; E11.9 Type 2 diabetes mellitus without complications; E78.5 Hyperlipidemia, unspecified; I10 Essential (primary) hypertension; E66.01 Morbid (severe) obesity due to excess calories; Z79.82 Long term (current) use of aspirin; Z79.899 Other long term (current) drug therapy; Z68.43 Body mass index [BMI] 50.0-59.9, adult
CPT/HCPCS: 36416; J2704

== ENCOUNTER 2024-01-19 22:50 | Inpatient (IN) | payer MEDICARE ==
[2024-01-20 00:44] VITALS: BMI 57.2
[2024-01-20] MEDS ORDERED: Calcium Carbonate 500 MG ChewTAB PO PRN (02:59)
[2024-01-20] MEDS ORDERED: Acetaminophen 650 MG Suppository PR PRN (02:59)
[2024-01-20] MEDS ORDERED: Ondansetron PF 4 MG/2 ML Vial IVP PRN (02:59)
[2024-01-20] MEDS ORDERED: Ondansetron ODT 4 MG TAB PO PRN (02:59)
[2024-01-20 04:07] LABS: #Basophils Less than 0.03 10x3/uL (0.0-0.2); #Eosinophils Less than 0.03 10x3/uL (0.0-0.7); %Basophils 0.2 % (0.0-1.0); %Monocytes 0.8 % (0.0-10.0); %Neutrophils 95.1 % (42.0-75.0); Hematocrit 39.3 % (36.0-47.0); Hemoglobin 11.9 g/dL (12.0-16.0); Mean Corpuscular HGB CONC 30.3 g/dL (32.0-36.0); Mean Corpuscular Hemoglobin 29.6 pg (27.0-31.0); Mean Corpuscular Volume 97.8 fL (78.0-98.0); Platelet Count 238 10x3/uL (130-400); RBC Distribution Width 14.3 % (11.5-14.5); Red Blood Cell (RBC) Count 4.02 mill/uL (4.20-5.40)
[2024-01-20 04:23] LABS: Hemoglobin A1c 5.8 % (4.0-6.0)
[2024-01-20 04:24] LABS: Anion Gap 15 mmol/L (10-20); BUN (Urea Nitrogen) 17 mg/dL (9.8-20.1); Calc. Creatinine Clearance 85 mL/min (70-130); Calcium 10.4 mg/dL (7.8-10.44); Carbon Dioxide 24 mmol/L (23-31); Chloride 99 mmol/L (98-107); Estimated GFR 44; Glucose 373 mg/dL (80-115); Magnesium 1.9 mg/dL (1.6-2.6); Potassium 4.3 mmol/L (3.5-5.1); Sodium 134 mmol/L (136-145)
[2024-01-20] MEDS: Acetaminophen 325 MG TAB PO SCH (05:52)
[2024-01-20] MEDS: Furosemide 40 MG (4 mL) VIAL SLOW IVP SCH (05:52)
[2024-01-20] MEDS ORDERED: Glucagon 1 MG/ML KIT IM PRN (08:17)
[2024-01-20] MEDS ORDERED: Dextrose 50% Abboject 50 ML SYRINGE SLOW IVP PRN (08:17)
[2024-01-20] MEDS ORDERED: Dextrose 5% in Water 1,000 ML IV PRN (08:17)
[2024-01-20] MEDS ORDERED: Insulin Lispro 100 UNIT/ML 10 ML VIAL SC PRN (08:17)
[2024-01-20] MEDS ORDERED: Famotidine/PF 20 mg/2ml Vial SLOW IVP SCH (09:00)
[2024-01-20] MEDS ORDERED: Carvedilol 25 MG TAB PO SCH (09:00)
[2024-01-20] MEDS ORDERED: Famotidine 20 MG TAB PO SCH (09:00)
[2024-01-20] MEDS ORDERED: Empagliflozin 10 MG TAB PO SCH (09:00)
[2024-01-20] MEDS ORDERED: Dapagliflozin Propanediol 10 MG TAB PO SCH (09:00)
[2024-01-20] MEDS: Atorvastatin Calcium 40 MG TAB PO SCH (09:04)
[2024-01-20] MEDS: Losartan 25 MG TAB PO SCH (09:04)
[2024-01-20] MEDS: Pantoprazole DR 40 MG TAB PO SCH (09:05)
[2024-01-20] MEDS: Aspirin Chewable 81 MG TAB PO SCH (09:05)
[2024-01-20] MEDS: Furosemide 40 MG TAB PO SCH (09:05)
[2024-01-20 09:09] LABS: Troponin I 0.012 ng/mL (< 0.028)
[2024-01-20] MEDS ORDERED: hydrALAZINE 20 MG/ML VIAL SLOW IVP PRN (09:39)
[2024-01-20] MEDS: Insulin Lispro 100 UNIT/ML 10 ML VIAL SC PRN (12:28)
[2024-01-20 13:47] LABS: Troponin I 0.015 ng/mL (< 0.028)
[2024-01-20] MEDS ORDERED: Albuterol 2.5 MG (3 mL) NEB NEB PRN (13:52)
[2024-01-20 15:58] VITALS: BMI 56.1
[2024-01-20] MEDS: Carvedilol 25 MG TAB PO SCH (17:53)
[2024-01-20] MEDS: Insulin Glargine 30 UNITS/0.3 ML VIAL SC SCH (21:31)
[2024-01-21 04:10] LABS: #Basophils Less than 0.03 10x3/uL (0.0-0.2); #Eosinophils Less than 0.03 10x3/uL (0.0-0.7); %Basophils 0.2 % (0.0-1.0); %Eosinophils 0.2 % (0.0-10.0); %Monocytes 8.3 % (0.0-10.0); %Neutrophils 81.7 % (42.0-75.0); Hematocrit 37.8 % (36.0-47.0); Hemoglobin 11.5 g/dL (12.0-16.0); Mean Corpuscular HGB CONC 30.4 g/dL (32.0-36.0); Mean Corpuscular Hemoglobin 29.5 pg (27.0-31.0); Mean Corpuscular Volume 96.9 fL (78.0-98.0); Mean Platelet Volume 9.7 fL (7.4-10.4); Platelet Count 238 10x3/uL (130-400); RBC Distribution Width 14.4 % (11.5-14.5)
[2024-01-21 04:25] LABS: Anion Gap 12 mmol/L (10-20); BUN (Urea Nitrogen) 26 mg/dL (9.8-20.1); Calc. Creatinine Clearance 88 mL/min (70-130); Calcium 10.6 mg/dL (7.8-10.44); Carbon Dioxide 29 mmol/L (23-31); Chloride 98 mmol/L (98-107); Estimated GFR 47; Glucose 253 mg/dL (80-115); Potassium 4.3 mmol/L (3.5-5.1); Sodium 135 mmol/L (136-145)
[2024-01-21] MEDS: Losartan 25 MG TAB PO SCH (08:43)
[2024-01-21] MEDS: Enoxaparin 40 MG (0.4 mL) SYRINGE SC SCH (08:43)
[2024-01-21] MEDS: traMADol HCl 50 MG TAB PO PRN (11:57)
[2024-01-21] MEDS: Guaifenesin DM 100-10/5 ML UDCUP PO PRN (17:34)
[2024-01-21] MEDS: Morphine 2 MG/ML VIAL SLOW IVP PRN (17:35)
[2024-01-21] MEDS: Albuterol 2.5 MG (3 mL) NEB NEB SCH (20:18)
[2024-01-22 04:55] LABS: #Basophils Less than 0.03 10x3/uL (0.0-0.2); %Basophils 0.2 % (0.0-1.0); %Eosinophils 1.3 % (0.0-10.0); %Lymphocytes 17.7 % (21.0-51.0); %Monocytes 9.3 % (0.0-10.0); %Neutrophils 70.8 % (42.0-75.0); Hematocrit 38.8 % (36.0-47.0); Hemoglobin 11.6 g/dL (12.0-16.0); Mean Corpuscular HGB CONC 29.9 g/dL (32.0-36.0); Mean Corpuscular Hemoglobin 29.9 pg (27.0-31.0); Mean Platelet Volume 9.5 fL (7.4-10.4); Platelet Count 240 10x3/uL (130-400); RBC Distribution Width 14.5 % (11.5-14.5); Red Blood Cell (RBC) Count 3.88 mill/uL (4.20-5.40)
[2024-01-22 05:19] LABS: Anion Gap 13 mmol/L (10-20); BUN (Urea Nitrogen) 33 mg/dL (9.8-20.1); Calc. Creatinine Clearance 71 mL/min (70-130); Calcium 10.6 mg/dL (7.8-10.44); Carbon Dioxide 28 mmol/L (23-31); Chloride 102 mmol/L (98-107); Estimated GFR 36; Glucose 194 mg/dL (80-115); Potassium 4.6 mmol/L (3.5-5.1); Sodium 138 mmol/L (136-145)
[2024-01-22] MEDS: Furosemide 40 MG (4 mL) VIAL SLOW IVP SCH (05:56)
[2024-01-22] MEDS: Furosemide 20 MG (2 mL) VIAL SLOW IVP SCH (14:50)
[2024-01-23 06:45] LABS: Anion Gap 10 mmol/L (10-20); BUN (Urea Nitrogen) 34 mg/dL (9.8-20.1); Calc. Creatinine Clearance 91 mL/min (70-130); Calcium 10.5 mg/dL (7.8-10.44); Carbon Dioxide 29 mmol/L (23-31); Chloride 99 mmol/L (98-107); Estimated GFR 49; Glucose 206 mg/dL (80-115); Potassium 4.2 mmol/L (3.5-5.1); Sodium 134 mmol/L (136-145)
[2024-01-23] MEDS: Furosemide 40 MG TAB PO SCH (10:01)
[2024-01-23 12:43] VITALS: BP 169/87; TEMP 98
== END 2024-01-23 14:00 | disposition home or self-care (01) | DRG 280 ==
LOC: 2SE 22:50 → OBSVTOIN 01-21 14:05
PROVIDERS: ADMIT Student in an Organized Health Care Education/Training Program; ATTEND Internal Medicine
DX: I13.0 Hypertensive heart and chronic kidney disease with heart failure and stage 1 through stage 4 chronic kidney disease, or unspecified chronic kidney disease (principal); I50.33 Acute on chronic diastolic (congestive) heart failure; I21.A1 Myocardial infarction type 2; L97.929 Non-pressure chronic ulcer of unspecified part of left lower leg with unspecified severity; Z68.43 Body mass index [BMI] 50.0-59.9, adult; E66.01 Morbid (severe) obesity due to excess calories; E78.5 Hyperlipidemia, unspecified; I16.0 Hypertensive urgency; E11.22 Type 2 diabetes mellitus with diabetic chronic kidney disease; I50.9 Heart failure, unspecified; G47.33 Obstructive sleep apnea (adult) (pediatric); Z79.82 Long term (current) use of aspirin; Z79.899 Other long term (current) drug therapy; Z79.890 Hormone replacement therapy; Z79.891 Long term (current) use of opiate analgesic
CPT/HCPCS: 36415; 36416; 71250; 78451; 80048; 83036; 83735; 83880; 84484; 85025; 85379; 93005; 93010; 93306; 94640; 96372; 96374; 97139; A9540; G0378; J1650; J1815; J1940; J2272; J7611

== ENCOUNTER 2024-02-21 10:30 | Emergency (ER) | payer MEDICARE ==
[2024-02-21] MEDS ORDERED: Acetaminophen/Codeine 30-300mg Tablet ONE (12:54)
[2024-02-21 15:13] LABS: #Basophils 0.03 10x3/uL (0.0-0.2); %Basophils 0.3 % (0.0-1.0); %Lymphocytes 13.8 % (21.0-51.0); %Monocytes 7.7 % (0.0-10.0); %Neutrophils 75.7 % (42.0-75.0); Hematocrit 38.8 % (36.0-47.0); Hemoglobin 11.7 g/dL (12.0-16.0); Mean Corpuscular HGB CONC 30.2 g/dL (32.0-36.0); Mean Corpuscular Hemoglobin 29.1 pg (27.0-31.0); Mean Corpuscular Volume 96.5 fL (78.0-98.0); Mean Platelet Volume 9.7 fL (7.4-10.4); Platelet Count 209 10x3/uL (130-400); RBC Distribution Width 14.1 % (11.5-14.5); Red Blood Cell (RBC) Count 4.02 mill/uL (4.20-5.40)
[2024-02-21 15:46] LABS: ALT (SGPT) 10 U/L (8-55); AST (SGOT) 12 U/L (5-34); Albumin 3.2 g/dL (3.4-4.8); Alkaline Phosphatase 119 U/L (40-110); Anion Gap 9 mmol/L (10-20); BUN (Urea Nitrogen) 14 mg/dL (9.8-20.1); Bilirubin, Total 0.3 mg/dL (0.2-1.2); Calc. Creatinine Clearance 0 mL/min (70-130); Calcium 10.8 mg/dL (7.8-10.44); Carbon Dioxide 26 mmol/L (23-31); Chloride 105 mmol/L (98-107); Estimated GFR 48; Globulin 5.3 g/dL (2.4-3.5); Glucose 109 mg/dL (80-115); Potassium 4.3 mmol/L (3.5-5.1); Protein, Total 8.5 g/dL (5.8-8.1); Sodium 136 mmol/L (136-145)
== END 2024-02-21 16:24 | disposition home or self-care (01) ==
LOC: ERS 10:30
DX: M79.605 Pain in left leg (principal); L08.9 Local infection of the skin and subcutaneous tissue, unspecified; I25.10 Atherosclerotic heart disease of native coronary artery without angina pectoris; K21.9 Gastro-esophageal reflux disease without esophagitis; E78.5 Hyperlipidemia, unspecified; E11.9 Type 2 diabetes mellitus without complications; I11.0 Hypertensive heart disease with heart failure; I50.9 Heart failure, unspecified
CPT/HCPCS: 36415; 80053; 83605; 85025; 99283

== ENCOUNTER 2025-02-08 13:09 | Outpatient (CLI) | payer OTHER | END 2025-02-08 13:10 | disposition home or self-care (01) | LOC: SCSULT 13:09 | PROVIDERS: ATTEND Nurse Practitioner Family | DX: R31.0 Gross hematuria (principal); N20.0 Calculus of kidney; N27.0 Small kidney, unilateral; N28.89 Other specified disorders of kidney and ureter | CPT/HCPCS: 76770 ==